=== PATIENT | female | born 1940 | race Caucasian/White ===

== ENCOUNTER 2017-10-09 08:57 | Outpatient (CLI) | payer MEDICARE, BC | END 2017-10-09 08:58 | disposition home or self-care (01) | LOC: BICMAMMO 08:57 | DX: Z12.31 Encounter for screening mammogram for malignant neoplasm of breast (principal) | CPT/HCPCS: 77063; 77067 ==

== ENCOUNTER 2018-10-11 10:52 | Outpatient (CLI) | payer MEDICARE, BC | END 2018-10-11 10:53 | disposition home or self-care (01) | LOC: BICMAMMO 10:52 | DX: Z12.31 Encounter for screening mammogram for malignant neoplasm of breast (principal); R92.1 Mammographic calcification found on diagnostic imaging of breast | CPT/HCPCS: 77063; 77067 ==

== ENCOUNTER 2019-10-12 10:26 | Outpatient (CLI) | payer MEDICARE, BC ==
--- NOTE | 2019-10-12 10:58 | MMO ---
Bilateral MAMMO Bilat Screen [facility]. CLINICAL HISTORY: Patient is 78 years old and is seen for screening. The patient has no family history of breast cancer. The patient has no personal history of cancer. The patient has a history of right Excisional Biopsy in 1991 - benign bx. VIEWS: The views performed were: bilateral craniocaudal with tomosynthesis and bilateral mediolateral oblique with tomosynthesis. FILMS COMPARED: The present examination has been compared to prior imaging studies performed at [facility] on 10/01/2015, 10/02/2016, 10/09/2017 and 10/11/2018. This study has been interpreted with the assistance of computer-aided detection. MAMMOGRAM FINDINGS: There are scattered fibroglandular densities. There are stable benign appearing calcifications seen in both breasts. There are no suspicious masses, suspicious calcifications, or new areas of architectural distortion. IMPRESSION: THERE IS NO MAMMOGRAPHIC EVIDENCE OF MALIGNANCY. A ROUTINE FOLLOW-UP MAMMOGRAM IN 1 YEAR IS RECOMMENDED. THE RESULTS OF THIS EXAM WERE SENT TO THE PATIENT. ACR BI-RADS Category 2 - Benign finding MAMMOGRAPHY NOTE: 1. A negative mammogram report should not delay a biopsy if a dominant of clinically suspicious mass is present. 2. Approximately 10% to 15% of breast cancers are not detected by mammography. 3. Adenosis and dense breasts may obscure an underlying neoplasm. Reported by: WENDI DOUGHERTY MD Electonically Signed: [id number]
== END 2019-10-12 10:27 | disposition home or self-care (01) ==
LOC: BICMAMMO 10:26
PROVIDERS: ATTEND Family Medicine
DX: Z12.31 Encounter for screening mammogram for malignant neoplasm of breast (principal); Z91.89 Other specified personal risk factors, not elsewhere classified
CPT/HCPCS: 77063; 77067

== ENCOUNTER 2019-10-23 03:14 | Emergency (ER) | payer MEDICARE, BC ==
[2019-10-23] MEDS ORDERED: Magnesium Citrate 300 ML BOT ONE (05:28)
--- NOTE | 2019-10-23 09:10 | RAD ---
UPRIGHT PA CHEST WITH 2 VIEW ABDOMEN: Date: 10/23/2019 INDICATION: Abdominal pain. FINDINGS: Lung iglesias are clear on the frontal chest exam. 2 views of the abdomen show prominent stool throughout the colon. Small bowel gas pattern is unremark able. No soft tissue mass effect. IMPRESSION: Prominent stool throughout the colon suggesting constipation. POS: ANNABELLE
== END 2019-10-23 06:46 | disposition home or self-care (01) ==
LOC: ERS 03:14
DX: K64.9 Unspecified hemorrhoids (principal); K59.00 Constipation, unspecified; M19.90 Unspecified osteoarthritis, unspecified site; I10 Essential (primary) hypertension; E78.5 Hyperlipidemia, unspecified; Z79.899 Other long term (current) drug therapy; Z79.82 Long term (current) use of aspirin
CPT/HCPCS: 74022

== ENCOUNTER 2020-10-31 11:53 | Outpatient (CLI) | payer MEDICARE, BC | END 2020-10-31 11:54 | disposition home or self-care (01) | LOC: BICMAMMO 11:53 | DX: Z12.31 Encounter for screening mammogram for malignant neoplasm of breast (principal); Z91.89 Other specified personal risk factors, not elsewhere classified | CPT/HCPCS: 77063; 77067 ==